=== PATIENT | male | born 1955 | race Caucasian/White ===

== ENCOUNTER 2024-03-24 16:06 | Outpatient (CLI) | payer BC | END 2024-03-24 16:07 | disposition home or self-care (01) | LOC: SCSRAD 16:06 | PROVIDERS: ATTEND Internal Medicine Rheumatology | DX: M25.571 Pain in right ankle and joints of right foot (principal); M25.572 Pain in left ankle and joints of left foot; M25.541 Pain in joints of right hand; M25.542 Pain in joints of left hand; G72.41 Inclusion body myositis [IBM]; M77.31 Calcaneal spur, right foot; M19.042 Primary osteoarthritis, left hand; M19.041 Primary osteoarthritis, right hand; S22.089A Unspecified fracture of T11-T12 vertebra, initial encounter for closed fracture; M19.072 Primary osteoarthritis, left ankle and foot; M77.32 Calcaneal spur, left foot ==